=== PATIENT | male | born 1990 | race African-American/Black ===

== ENCOUNTER 2018-04-18 15:08 | Emergency (ER) | payer MEDICAID ==
[~2018-04-18] VITALS: Ht 185.4 cm; Wt 64.0 kg
[2018-04-18 15:59] VITALS: BP 103/69
[2018-04-18] MEDS ORDERED: ONDA4TAB50 MT (16:02)
== END 2018-04-18 19:40 | disposition left against medical advice (07) ==
LOC: ER 15:08
DX: R19.7 Diarrhea, unspecified (principal); R11.2 Nausea with vomiting, unspecified; Z53.21 Procedure and treatment not carried out due to patient leaving prior to being seen by health care provider

== ENCOUNTER 2018-07-09 09:13 | Emergency (ER) | payer MEDICAID ==
[~2018-07-09] VITALS: Ht 185.4 cm; Wt 64.0 kg
[~2018-07-09 09:13] MED LIST: ONDA4TAB50 MT
[2018-07-09] MEDS ORDERED: PANTOPRAZOLE SODIUM 40 MG/VIAL IV STA (10:59)
[2018-07-09] MEDS ORDERED: MAGNESIUM/ALUMINUM HYDROXIDE/SIMETHICONE 30ML UDC PO STA (10:59)
[2018-07-09] MEDS ORDERED: SODIUM CHLORIDE 0.9% 1,000 ML IV ONE (10:59)
[2018-07-09 11:14] LABS: BASOPHILS % 0.6 % (0.0-2.0); EOSINOPHILS % 1.6 % (0.0-5.0); HEMATOCRIT. 43.2 % (42.0-52.0); HEMOGLOBIN. 14.7 g/dL (14.0-18.0); LYMPHOCYTES % 33.8 % (20.0-50.0); MEAN CORPUSCULAR HEMOGLOBIN 31.8 pg (28.0-32.0); MEAN CORPUSCULAR VOLUME 93.5 fL (80.0-94.0); MEAN PLATELET VOLUME 8.5 fl (7.4-10.4); MONOCYTES % 7.9 % (2.0-8.0); NEUTROPHILS % 56.1 % (40.0-76.0); PLATELET 259 x1000/uL (130-400); RED BLOOD CELL COUNT 4.62 mill/uL (4.7-6.1); RED CELL DISTRIBUTION WIDTH 13.6 % (11.6-14.6)
[2018-07-09 11:20] LABS: CHLORIDE 101 mEq/L (98-107)
[2018-07-09] MEDS ORDERED: KETOROLAC 15MG/ML VIAL IV ONE (12:45)
[2018-07-09 13:30] VITALS: BP 121/71
== END 2018-07-09 13:49 | disposition home or self-care (01) ==
LOC: ER 09:13
DX: R10.13 Epigastric pain (principal)
CPT/HCPCS: 36415; 74176; 80053; 83690; 85025; 96374; 96375; 99284; C9113; J1885; J7030; Z7610

== ENCOUNTER 2021-07-22 15:45 | Emergency (ER) | payer MEDICAID, OTHER ==
[~2021-07-22] VITALS: Ht 185.4 cm; Wt 66.0 kg
[2021-07-22] MEDS ORDERED: VISCOUS LIDOCAINE 2% 15 ML UDC PO STA (16:11)
[2021-07-22] MEDS ORDERED: MAGNESIUM/ALUMINUM HYDROXIDE/SIMETHICONE 30ML UDC PO STA (16:11)
[2021-07-22 16:35] LABS: BASOPHILS % 0.7 % (0.0-2.0); EOSINOPHILS % 1.9 % (0.0-5.0); HEMATOCRIT. 40.2 % (42.0-52.0); LYMPHOCYTES % 45.5 % (20.0-50.0); MEAN CORPUSCULAR VOLUME 92.1 fL (80.0-94.0); MEAN PLATELET VOLUME 7.8 fl (7.4-10.4); MONOCYTES % 9.6 % (2.0-8.0); NEUTROPHILS % 42.3 % (40.0-76.0); PLATELET 258 x1000/uL (130-400); RED BLOOD CELL COUNT 4.37 mill/uL (4.7-6.1); RED CELL DISTRIBUTION WIDTH 13.5 % (11.6-14.6)
[2021-07-22 16:50] LABS: CHLORIDE 102 mEq/L (98-107)
[2021-07-22 17:39] VITALS: BP 119/94
== END 2021-07-22 17:38 | disposition home or self-care (01) ==
LOC: ER 15:45
DX: R10.12 Left upper quadrant pain (principal)
CPT/HCPCS: 36415; 80053; 85025; 99283

== ENCOUNTER 2022-08-06 17:25 | Emergency (ER) | payer MEDICAID, OTHER ==
[~2022-08-06] VITALS: Ht 182.9 cm; Wt 69.0 kg
[2022-08-06 18:00] VITALS: BP 120/83
[2022-08-06 19:02] LABS: BASOPHILS % 0.2 % (0.0-2.0); EOSINOPHILS % 1.3 % (0.0-5.0); HEMOGLOBIN. 14.6 g/dL (14.0-18.0); LYMPHOCYTES % 24.1 % (20.0-50.0); MEAN CORPUSCULAR HEMOGLOBIN 32.9 pg (28.0-32.0); MEAN CORPUSCULAR VOLUME 96.8 fL (80.0-94.0); MEAN PLATELET VOLUME 8.2 fl (7.4-10.4); MONOCYTES % 4.7 % (2.0-8.0); NEUTROPHILS % 69.7 % (40.0-76.0); PLATELET 257 x1000/uL (130-400); RED BLOOD CELL COUNT 4.44 mill/uL (4.7-6.1); RED CELL DISTRIBUTION WIDTH 13.5 % (11.6-14.6)
[2022-08-06 19:19] LABS: CHLORIDE 107 mEq/L (98-107)
[2022-08-06 19:28] LABS: ETHANOL BLOOD 253 mg/dL
== END 2022-08-06 20:08 ==
LOC: ER 17:25
DX: F10.129 Alcohol abuse with intoxication, unspecified (principal); R45.1 Restlessness and agitation; Y90.8 Blood alcohol level of 240 mg/100 ml or more
CPT/HCPCS: 36415; 80053; 80320; 85025; 99283; G0480

== ENCOUNTER 2023-02-19 08:33 | Emergency (ER) | payer MEDICAID ==
[~2023-02-19] VITALS: Ht 185.4 cm; Wt 66.0 kg
[2023-02-19 08:43] VITALS: O2SAT 99
[2023-02-19] MEDS ORDERED: ACETAMINOPHEN 325MG TABLET PO ONE (11:15)
[2023-02-19] MEDS ORDERED: ONDANSETRON HCL 4MG TABLET PO ONE (11:15)
[2023-02-19] MEDS ORDERED: ONDA4TAB50 MT (11:37)
[2023-02-19 12:29] VITALS: BP 122/78; PULSE 98; RESP 18; TEMP 98.7
== END 2023-02-19 12:30 | disposition home or self-care (01) ==
LOC: ER 08:33
DX: B34.9 Viral infection, unspecified (principal); F10.10 Alcohol abuse, uncomplicated; Z20.822 Contact with and (suspected) exposure to COVID-19; Y90.9 Presence of alcohol in blood, level not specified
CPT/HCPCS: 99283; 87426; Q0162; C9803